=== PATIENT | male | born 1970 | race Caucasian/White ===

== ENCOUNTER 2018-01-25 11:50 | Emergency (ER) | payer MEDICARE, MEDICAID ==
[~2018-01-25] VITALS: Ht 185.4 cm; Wt 81.8 kg
[2018-01-25 12:06] VITALS: Ht 185.4 cm; Wt 81.8 kg
[2018-01-25] MEDS ORDERED: ISENTRESS400 MG PO (12:08)
[2018-01-25] MEDS ORDERED: HYDROCODONE-APA1 TAB PO (12:09)
[2018-01-25] MEDS ORDERED: LOPRESSOR25 MG PO (12:09)
[2018-01-25] MEDS ORDERED: MAXALT10 MG PO (12:10)
[2018-01-25] MEDS ORDERED: IMITREX100 MG PO (12:10)
[2018-01-25] MEDS ORDERED: [UNRECOGNIZED DRUG - OTHER] (12:11)
[2018-01-25 12:22] LABS: BASOPHILS 0.1 % (0-2); EOSINOPHILS 0.7 % (0-7); HEMATOCRIT 38.3 % (42.0-54.0); HEMOGLOBIN 13.6 g/dL (13.5-17.5); IMMATURE GRANULOCYTES 0.4 % (0-5); LYMPHOCYTES 33.9 % (15-50); MCH 30.6 pg (26.0-34.0); MCHC 35.5 g/dL (31.0-37.0); MCV 86.1 fL (80.0-100.0); MONOCYTES 9.7 % (2-11); NEUTROPHILS 55.2 % (40-80); PLATELET COUNT 206 10x3/uL (130-400); RBC 4.45 10x6/uL (4.20-6.10); RDW 13.2 % (11.5-14.5); WBC 6.7 10x3/uL (4.8-10.8)
[2018-01-25 12:37] LABS: ALBUMIN 4.1 g/dL (3.4-5.0); ALKALINE PHOSPHATASE 75 U/L (46-116); ALT (SGPT) 26 U/L (10-68); BILIRUBIN - TOTAL 0.57 mg/dL (0.2-1.3); CALC OSMOLALITY 276 mosm/kg (275-300); CALCIUM 8.7 mg/dL (8.5-10.1); CARBON DIOXIDE 26.7 mmol/L (21.0-32.0); CHLORIDE - SERUM 102 mmol/L (98-107); CREATININE - SERUM 0.9 mg/dL (0.6-1.3); GLUCOSE 107 mg/dL (74-106); POTASSIUM - SERUM 3.2 mmol/L (3.5-5.1); SODIUM 140 mmol/L (136-145); UREA NITROGEN 8 mg/dL (7-18); eGFR NON AFRICAN AMERICAN > 90 mL/min (90-120)
[2018-01-25 12:49] LABS: CKMB 1.2 U/L (0.0-3.6); CREATINE KINASE 78 UL (21-232); TROPONIN-I < 0.017 ng/mL (0.000-0.060)
[2018-01-25 13:26] LABS: C-REACTIVE PROTEIN 3.3 mg/dL (0.0-0.9); CREATINE KINASE 80 UL (21-232); PRO BNP 30 pg/mL (0-125)
[2018-01-25 13:27] LABS: TROPONIN-I < 0.017 ng/mL (0.000-0.060)
[2018-01-25 14:16] LABS: ERYTHROCYTE SEDIMENTATION RATE 19 mm/hr (0-15)
[2018-01-25 17:10] VITALS: BP 115/80
== END 2018-01-25 17:10 | disposition other institution (70) ==
LOC: D.ER 11:50
PROVIDERS: Family Medicine
DX: S37.33XA Laceration of urethra, initial encounter (principal); X58.XXXA Exposure to other specified factors, initial encounter; Y93.9 Activity, unspecified; Y92.9 Unspecified place or not applicable; I48.92 Unspecified atrial flutter; B20 Human immunodeficiency virus [HIV] disease; I10 Essential (primary) hypertension